=== PATIENT | male | born 1995 | race Hispanic/Latino ===

== ENCOUNTER 2023-07-11 13:30 | Emergency (ER) | payer BC ==
[2023-07-11 14:15] VITALS: BP 134/82; PULSE 101; RESP 18; O2SAT 96
[2023-07-11] MEDS ORDERED: TORAdol 30 mg Injection ONE (14:32)
[2023-07-11] MEDS: TORAdol 30 mg Injection IM ONE (14:34)
--- NOTE | 2023-07-11 15:37 | ERPHSYRPT ---
- History of Present Illness Time Seen by Provider: 07/11/23 13:40 Source: patient Exam Limitations: no limitations Patient Subjective Stated Complaint: shoulder pain Triage Nursing Assessment: Patient reports that he injured his right shoulder 7 days ago while moving heavy objects. Patient reports that his pain at this time is 3/10 while resting. ROM to right upper extremity intact but causes increased pain. Patient reports pain 8/10 with movement. Patient states area is swollen and tender to touch. No visible injury noted. Physician History: 28 years old right-handed dominant male presented in the ER with chief complaint of right shoulder pain for almost 1 week after he was lifting heavy objects and felt some popping sensation. Patient reports dull aching to sharp pain mild at resting but 8/10 intensity with movement especially abduction. No numbness or tingling in the distal right upper extremity. No neck pain. Has been taking Tylenol with no significant relief at all. Allergies/Adverse Reactions: No Known Drug Allergies Allergy (Unverified 07/11/23 14:28) Travel Risk - International Travel Have you traveled outside of the country in past 3 weeks: No - Coronavirus Screening Are you exhibiting any of the following symptoms?: No Close contact with a COVID-19 positive Pt in past 14-21 Days: No - Vaccine Status Have you recieved a Covid-19 vaccination: No - Review of Systems Constitutional: No Symptoms Ears, Nose, & Throat: No Symptoms Respiratory: No Symptoms Cardiac: No Symptoms Abdominal/Gastrointestinal: No Symptoms Musculoskeletal: Joint Pain Skin: No Symptoms Neurological: No Symptoms Endocrine: No Symptoms Hematologic/Lymphatic: No Symptoms Immunological/Allergic: No Symptoms - Past Medical History Pertinent Past Medical History: No Neurological History: No Pertinent History ENT History: No Pertinent History Cardiac History: No Pertinent History Respiratory History: No Pertinent History Endocrine Medical History: No Pertinent History Musculoskeletal History: No Pertinent History GI Medical History: No Pertinent History History: No Pertinent History Psycho-Social History: No Pertinent History Male Reproductive Disorders: No Pertinent History - Past Surgical History Past Surgical History: Yes Neuro Surgical History: No Pertinent History Cardiac: No Pertinent History Respiratory: No Pertinent History Gastrointestinal: No Pertinent History Genitourinary: No Pertinent History Musculoskeletal: No Pertinent History Male Surgical History: No Pertinent History Other Surgical History: neck surgery around age 8 or 9 - Social History Smoking Status: Never smoker Drug Use: none Patient Lives Alone: No - Nursing Vital Signs Nursing Vital Signs: Initial Vital Signs Pulse Rate 101 H 07/11/23 14:05 Respiratory Rate 18 07/11/23 14:05 Blood Pressure 134/82 07/11/23 14:05 O2 Sat by Pulse Oximetry 96 07/11/23 14:05 Pain Scale Pain Intensity 5 - Physical Exam General Appearance: no apparent distress, alert Eyes, Ears, Nose, Throat Exam: normal ENT inspection Neck Exam: normal inspection, non-tender, supple, full range of motion, No limited range of motion Cardiovascular/Respiratory Exam: chest non-tender, normal breath sounds, regular rate/rhythm Back Exam: normal inspection Shoulder Exam: normal inspection, limited ROM (Abduction.), soft tissue tenderness (Minimal) Elbow/Forearm Exam: normal inspection, non-tender, no evidence of injury, normal ROM Wrist Exam: normal inspection Hand Exam: normal inspection, non-tender, no evidence of injury Neuro/Tendon Exam: normal sensation, normal motor functions Mental Status Exam: alert, oriented x 3, cooperative Skin Exam: normal color SpO2 Interpretation: normal SpO2: 96 O2 Delivery: Room Air Ordered Tests: Active Orders 24 hr Category Date Time Status SHOULDER Stat Exams 07/11/23 14:27 Taken Medication Summary Discontinued Medications Generic Name Dose Route Start Last Admin Trade Name Freq PRN Reason Stop Dose Admin Ketorolac Tromethamine 30 mg 07/11/23 14:27 07/11/23 14:34 Ketorolac Tromethamine 30 Mg/Ml Inj IM 07/11/23 14:28 30 mg STAT ONE Administration Ketorolac Tromethamine Confirm 07/11/23 14:32 Ketorolac Tromethamine 30 Mg/Ml Inj Administered 07/11/23 14:33 Dose 30 mg .ROUTE .STK-MED ONE - Progress Progress: improved, re-examined Progress Note: 07/11/23 15:36 28 years old is evaluated for right shoulder pain for almost 1 week after lifting heavy objects. Patient has some limited range of motion. No obvious bony tenderness. X-rays are negative for fracture dislocation reviewed by me, official report is pending. Patient is given Toradol for symptomatic relief, on reevaluation feeling better. I believe patient has ligament injury/rotator cuff/sprain, recommended NSAIDs, intermittent ice application and outpatient follow-up with orthopedics. Discussed signs symptoms of worsening needing return to ER which he seems understanding. Counseled pt/family regarding: diagnosis, need for follow-up, rad results Medical Desision Making - Diagnostic Testing Diagnostic test were ordered, analyzed, and reviewed by me: Yes Radiological Interpretation: Interpreted by me, Reviewed by me - Risk of complications The pt has a mod risk of morbidity or mortality based on: Need for prescription drug management - Departure Departure Disposition: Home Clinical Impression: Sprain of shoulder, right Condition: Stable Critical Care Time: No Referrals: DOCTOR,NO FAMILY [Primary Care Provider] - Follow up/PCP as directed RAFFAELE FISCHER MD [ACTIVE STAFF] - Follow up/PCP as directed (In 2 days for reevaluation.) Instructions: Shoulder Sprain (DC) Additional Instructions: Intermittent ice application. Avoid exertional activities. Follow-up with primary care/orthopedics for reevaluation. Return to ER for any worsening. Prescriptions: Diclofenac Sodium 50 mg [Voltaren 50 mg] 50 mg PO TID PRN 10 Days #25 tablet PRN Reason: Pain
--- NOTE | 2023-07-11 20:43 | XRAY ---
Indication: Pain. Comparison: None 3 view right shoulder obtained. No bony, articular, or soft tissue abnormalities.
== END 2023-07-11 15:47 | disposition home or self-care (01) ==
LOC: ED 13:30
DX: S43.401A Unspecified sprain of right shoulder joint, initial encounter (principal); X50.0XXA Overexertion from strenuous movement or load, initial encounter; Z28.310 Unvaccinated for COVID-19
CPT/HCPCS: 73030; 96372; 99283; J1885